=== PATIENT | female | born 1985 | race Asian ===

== ENCOUNTER 2018-03-13 08:39 | Outpatient (CLI) | payer OTHER | END 2018-03-13 15:43 | disposition home or self-care (01) | LOC: RAD 08:39 | DX: R05 Cough (principal) ==

== ENCOUNTER 2019-04-04 11:18 | Outpatient (CLI) | payer OTHER | END 2019-04-04 12:01 | disposition home or self-care (01) | LOC: NST 11:18 | DX: Z34.82 Encounter for supervision of other normal pregnancy, second trimester (principal) ==

== ENCOUNTER 2019-05-24 15:06 | Outpatient (CLI) | payer OTHER | END 2019-05-24 16:08 | disposition home or self-care (01) | LOC: NST 15:06 | DX: Z34.83 Encounter for supervision of other normal pregnancy, third trimester (principal) ==

== ENCOUNTER 2019-05-29 09:10 | Outpatient (CLI) | payer OTHER | END 2019-05-29 10:35 | disposition home or self-care (01) | LOC: NST 09:10 | DX: Z34.83 Encounter for supervision of other normal pregnancy, third trimester (principal) ==

== ENCOUNTER 2019-06-06 11:03 | Outpatient (CLI) | payer OTHER | END 2019-06-06 12:17 | disposition home or self-care (01) | LOC: NST 11:03 | DX: Z34.83 Encounter for supervision of other normal pregnancy, third trimester (principal) ==

== ENCOUNTER → 2019-06-10 | Outpatient (CLI) | payer OTHER | END | disposition home or self-care (01) | LOC: NST 00:46 | DX: Z34.83 Encounter for supervision of other normal pregnancy, third trimester (principal) ==

== ENCOUNTER 2019-06-18 09:39 | Outpatient (CLI) | payer OTHER | END 2019-06-18 10:44 | disposition home or self-care (01) | LOC: NST 09:39 | DX: Z34.83 Encounter for supervision of other normal pregnancy, third trimester (principal) ==

== ENCOUNTER 2019-06-20 11:19 | Outpatient (CLI) | payer OTHER ==
[2019-06-20] MEDS ORDERED: SYNTHROID137 MCG PO (15:14)
[2019-06-20] MEDS ORDERED: IRON325 MG PO (15:15)
[2019-06-20] MEDS ORDERED: PRENATAL TABLE1 EACH PO (15:15)
[2019-06-20] MEDS ORDERED: RANITIDINE HCL300 M1 PO (15:16)
== END 2019-06-20 13:54 | disposition home or self-care (01) ==
LOC: NST 11:19
DX: O35.8XX0 Maternal care for other (suspected) fetal abnormality and damage, not applicable or unspecified (principal); Z3A.34 34 weeks gestation of pregnancy

== ENCOUNTER 2019-06-20 14:42 | Inpatient (IN) | payer OTHER ==
[~2019-06-20] VITALS: Ht 167.6 cm; Wt 1.8 kg
[2019-06-20] MEDS ORDERED: SYNTHROID137 MCG PO (15:14)
[2019-06-20] MEDS ORDERED: IRON325 MG PO (15:15)
[2019-06-20] MEDS ORDERED: PRENATAL TABLE1 EACH PO (15:15)
[2019-06-20] MEDS ORDERED: RANITIDINE HCL300 M1 PO (15:16)
[2019-06-23] MEDS ORDERED: OXYC1TAB9 PO (09:19)
[2019-06-23] MEDS ORDERED: KETO10TA2 PO (09:19)
== END 2019-06-23 15:06 | DRG 786 ==
LOC: O/R 14:42 → LDR 14:42 → O/R 18:21 → OB/GYN 18:57
PROVIDERS: ADMIT Obstetrics & Gynecology
PROC: 4A1HXCZ Monitoring of Products of Conception, Cardiac Rate, External Approach (ICD-10-PCS; 2019-06-20)
PROC: 10D00Z1 Extraction of Products of Conception, Low, Open Approach (ICD-10-PCS; principal; 2019-06-20 18:00)
DX: O30.043 Twin pregnancy, dichorionic/diamniotic, third trimester (principal); O60.13X2 Preterm labor second trimester with preterm delivery third trimester, fetus 2; Z3A.36 36 weeks gestation of pregnancy; Z37.2 Twins, both liveborn

== ENCOUNTER 2020-04-18 14:02 | Outpatient (CLI) | payer OTHER ==
[~2020-04-18 14:02] MED LIST: IRON325 MG PO; KETO10TA2 PO; OXYC1TAB9 PO; PRENATAL TABLE1 EACH PO; RANITIDINE HCL300 M1 PO; SYNTHROID137 MCG PO
== END 2020-04-18 14:12 | disposition home or self-care (01) ==
LOC: LAB 14:02
PROVIDERS: ATTEND Otolaryngology
DX: Z20.828 Contact with and (suspected) exposure to other viral communicable diseases (principal); Z03.818 Encounter for observation for suspected exposure to other biological agents ruled out; R53.83 Other fatigue; E03.8 Other specified hypothyroidism; E66.09 Other obesity due to excess calories

== ENCOUNTER 2020-04-21 16:19 | Outpatient (CLI) | payer OTHER | END 2020-04-21 16:28 | disposition home or self-care (01) | LOC: LAB 16:19 | PROVIDERS: ATTEND Otolaryngology Otology & Neurotology | DX: Z20.828 Contact with and (suspected) exposure to other viral communicable diseases (principal); N91.1 Secondary amenorrhea; Z03.818 Encounter for observation for suspected exposure to other biological agents ruled out ==

== ENCOUNTER 2020-10-10 12:53 | Outpatient (CLI) | payer OTHER | END 2020-10-10 13:28 | disposition home or self-care (01) | LOC: NST 12:53 | PROVIDERS: ATTEND Obstetrics & Gynecology Maternal & Fetal Medicine | DX: Z34.83 Encounter for supervision of other normal pregnancy, third trimester (principal) ==

== ENCOUNTER 2020-11-21 13:37 | Outpatient (CLI) | payer OTHER | END 2020-11-21 13:55 | disposition home or self-care (01) | LOC: NST 13:37 | PROVIDERS: ATTEND Obstetrics & Gynecology | DX: Z34.83 Encounter for supervision of other normal pregnancy, third trimester (principal) ==

== ENCOUNTER 2020-12-10 13:57 | Outpatient (CLI) | payer OTHER ==
[2020-12-12] MEDS ORDERED: SYNTHROID150 MCG PO (10:19)
[2020-12-12] MEDS ORDERED: PANTOPRAZOLE SO40 M2 PO (10:21)
== END 2020-12-10 14:28 | disposition home or self-care (01) ==
LOC: NST 13:57
PROVIDERS: ATTEND Obstetrics & Gynecology Maternal & Fetal Medicine
DX: Z34.83 Encounter for supervision of other normal pregnancy, third trimester (principal)

== ENCOUNTER 2020-12-11 09:03 | Outpatient (CLI) | payer OTHER ==
[2020-12-12] MEDS ORDERED: SYNTHROID150 MCG PO (10:19)
[2020-12-12] MEDS ORDERED: PANTOPRAZOLE SO40 M2 PO (10:21)
== END 2020-12-11 10:06 | disposition home or self-care (01) ==
LOC: NST 09:03
PROVIDERS: ATTEND Obstetrics & Gynecology
DX: Z34.83 Encounter for supervision of other normal pregnancy, third trimester (principal)

== ENCOUNTER 2020-12-17 07:03 | Inpatient (IN) | payer OTHER ==
[~2020-12-17] VITALS: Ht 165.1 cm; Wt 3.2 kg
[~2020-12-17 07:03] MED LIST changes: +PANTOPRAZOLE SO40 M2 PO; +SYNTHROID150 MCG PO
[2020-12-17] MEDS ORDERED: FAMOTIDINE40 MG (08:28)
[2020-12-19] MEDS ORDERED: OXYC1TAB9 PO (08:01)
[2020-12-19] MEDS ORDERED: KETO10TA2 PO (08:01)
== END 2020-12-19 10:12 | DRG 785 ==
LOC: O/R 07:03 → SURG-SUITE 07:03 → OB/GYN 09:55 → SURG-SUITE 12:01 → OB/GYN 14:00 → SURG-SUITE 12-19 10:12
PROVIDERS: ADMIT Obstetrics & Gynecology Maternal & Fetal Medicine; ATTEND Obstetrics & Gynecology Maternal & Fetal Medicine
PROC: 10D00Z1 Extraction of Products of Conception, Low, Open Approach (ICD-10-PCS; 2020-12-17)
PROC: 0UB70ZZ Excision of Bilateral Fallopian Tubes, Open Approach (ICD-10-PCS; principal; 2020-12-17 14:00)
DX: O65.5 Obstructed labor due to abnormality of maternal pelvic organs (principal); O34.211 Maternal care for low transverse scar from previous cesarean delivery; Z3A.39 39 weeks gestation of pregnancy; Z37.0 Single live birth; Z30.2 Encounter for sterilization

== ENCOUNTER 2021-03-06 09:48 | Outpatient (CLI) | payer OTHER ==
[~2021-03-06 09:48] MED LIST changes: +FAMOTIDINE40 MG
== END 2021-03-06 09:59 | disposition home or self-care (01) ==
LOC: RAD 09:48
PROVIDERS: ATTEND Otolaryngology
DX: R05 Cough (principal)

== ENCOUNTER 2021-05-06 09:07 | Outpatient (CLI) | payer OTHER | END 2021-05-06 11:05 | disposition home or self-care (01) | LOC: LAB 09:07 | PROVIDERS: ATTEND Otolaryngology | DX: Z11.52 Encounter for screening for COVID-19 (principal) ==

== ENCOUNTER 2021-07-17 09:35 | Outpatient (CLI) | payer OTHER | END 2021-07-17 09:42 | disposition home or self-care (01) | LOC: LAB 09:35 | PROVIDERS: ATTEND Otolaryngology | DX: Z03.818 Encounter for observation for suspected exposure to other biological agents ruled out (principal) ==

== ENCOUNTER 2021-08-10 16:15 | Outpatient (CLI) | payer OTHER | END 2021-08-10 16:19 | disposition home or self-care (01) | LOC: RAD 16:15 | PROVIDERS: ATTEND Otolaryngology Otology & Neurotology | DX: R05.8 Other specified cough (principal) ==

== ENCOUNTER 2022-04-01 18:59 | Emergency (ER) | payer OTHER ==
[~2022-04-01] VITALS: Ht 165.1 cm; Wt 105.7 kg
[2022-04-01] MEDS ORDERED: TORADOL60 MG IM (20:59)
[2022-04-01] MEDS ORDERED: MACRODANTIN100 M1 PO (20:59)
== END 2022-04-01 21:06 | disposition home or self-care (01) ==
LOC: ER 18:59
DX: N39.0 Urinary tract infection, site not specified (principal); I88.0 Nonspecific mesenteric lymphadenitis; R10.9 Unspecified abdominal pain

== ENCOUNTER 2023-07-14 15:28 | Outpatient (CLI) | payer OTHER ==
[~2023-07-14 15:28] MED LIST changes: +MACRODANTIN100 M1 PO; +TORADOL60 MG IM
== END 2023-07-14 16:13 | disposition home or self-care (01) ==
LOC: RAD 15:28
PROVIDERS: ATTEND Surgery
DX: R05.9 Cough, unspecified (principal)

== ENCOUNTER 2023-11-02 13:20 | Outpatient (CLI) | payer OTHER | END 2023-11-02 14:23 | disposition home or self-care (01) | LOC: EKG 13:20 | PROVIDERS: ATTEND Internal Medicine | DX: R00.2 Palpitations (principal) ==

== ENCOUNTER 2024-04-27 14:00 | Outpatient (CLI) | payer OTHER, BC | END 2024-04-27 14:08 | disposition home or self-care (01) | LOC: MRI 14:00 | PROVIDERS: ATTEND Surgery | DX: D06.7 Carcinoma in situ of other parts of cervix (principal) | CPT/HCPCS: 72197 ==

== ENCOUNTER 2024-11-12 16:28 | Outpatient (CLI) | payer OTHER, BC | END 2024-11-12 16:35 | disposition home or self-care (01) | LOC: RAD 16:28 | PROVIDERS: ATTEND Surgery | DX: E03.9 Hypothyroidism, unspecified (principal); N60.19 Diffuse cystic mastopathy of unspecified breast ==

== ENCOUNTER 2025-07-15 12:13 | Outpatient (CLI) | payer BC | END 2025-07-15 12:24 | disposition home or self-care (01) | LOC: RAD 12:13 | PROVIDERS: ATTEND Surgery | DX: R05.9 Cough, unspecified (principal); Z11.3 Encounter for screening for infections with a predominantly sexual mode of transmission ==